=== PATIENT | male | born 1995 | race African-American/Black ===

== ENCOUNTER 2024-04-23 22:29 | Inpatient (IN) | payer MEDICAID, OTHER, SELFPAY ==
[~2024-04-23] VITALS: Ht 185.4 cm; Wt 120.0 kg
[2024-04-23 23:54] LABS: HEMATOCRIT 40.6 % (42.0-52.0); HEMOGLOBIN 13.8 g/dl (13.5-17.5); MEAN CORPUSCULAR HEMOGLOBIN 29.7 pg (27.0-33.0); MEAN CORPUSCULAR VOLUME 87.5 fl (80.0-96.0); PLATELET COUNT, AUTOMATED 257 10^3/uL (150-450); RED BLOOD COUNT 4.64 10^6/uL (4.30-6.10); WHITE BLOOD COUNT 8.1 10^3/uL (4.0-10.0)
[2024-04-24 00:15] LABS: AMPHETAMINES LEVEL URINE NEGATIVE (NEGATIVE); BARBITURATES URINE NEGATIVE (NEGATIVE); BENZODIAZEPINES URINE NEGATIVE (NEGATIVE); COCAINE METABOLITE URINE NEGATIVE (NEGATIVE); METHADONE URINE NEGATIVE (NEGATIVE); OPIATES URINE NEGATIVE (NEGATIVE); PHENCYCLIDINE URINE NEGATIVE (NEGATIVE)
[2024-04-24 00:17] LABS: ETHYL ALCOHOL (ETHANOL) < 0.003 % (0.000-0.010)
[2024-04-24 00:19] LABS: ALBUMIN 3.5 G/DL (3.2-5.2); ALKALINE PHOSPHATASE 69 U/L (40-129); ALT/SGPT 20 U/L (7.0-40); AST/SGOT 17 U/L (<34); BILIRUBIN,DIRECT 0.1 MG/DL (<0.4); BILIRUBIN,TOTAL 0.3 MG/DL (0.3-1.2); BLOOD UREA NITROGEN 16 MG/DL (9-23); CALCIUM LEVEL 8.9 MG/DL (8.5-10.1); CARBON DIOXIDE LEVEL 26 MMOL/L (20-31); CHLORIDE LEVEL 108 MMOL/L (98-107); CREATININE FOR GFR 0.87 MG/DL (0.70-1.30); GLOMERULAR FILTRATION RATE > 60.0 (>60); GLUCOSE, FASTING 92 MG/DL (60-100); POTASSIUM SERUM 3.5 MMOL/L (3.5-5.1); SALICYLATE LEVEL < 3.0 MG/DL (<30); SODIUM LEVEL 139 MMOL/L (136-145); TOTAL PROTEIN 6.9 G/DL (5.7-8.2)
[2024-04-24 00:21] LABS: CANNABINOIDS URINE POSITIVE (NEGATIVE); THYROID STIMULATING HORMONE 0.998 uIU/ML (0.55-4.78)
[2024-04-24] MEDS ORDERED: IBUPROFEN 400MG TAB PO PRN (00:35)
[2024-04-24] MEDS ORDERED: traZODone 50 MG TAB PO PRN (00:35)
[2024-04-24] MEDS ORDERED: diphenhydrAMINE 25MG CAP PO PRN (00:35)
[2024-04-24] MEDS ORDERED: MAALOX 30 ML SUSP *UDC PO PRN (00:35)
[2024-04-24] MEDS ORDERED: MOM 30ML SUSPENSION UDC PO PRN (00:35)
[2024-04-24] MEDS ORDERED: ACETAMINOPHEN 325 MG TAB PO PRN (00:35)
[2024-04-24] MEDS ORDERED: HOME MED LIST COMPLETE! XX SCH (00:50)
[2024-04-24 02:09] VITALS: BP 117/70; TEMP 97.3; O2SAT 98
[2024-04-24 06:30] VITALS: BP 129/75; TEMP 97.6; O2SAT 99
[2024-04-24] MEDS: buPROPion **XL** TABLET 150MG (WELLBUTRIN XL) PO SCH (09:28)
[2024-04-24 15:10] VITALS: BP 131/74; TEMP 98; O2SAT 100
[2024-04-25 06:45] VITALS: BP 122/59; TEMP 97.7; O2SAT 98
[2024-04-25 06:50] LABS: CHOLESTEROL RISK RATIO 3.1 (<5); HDL CHOLESTEROL 38.6 MG/DL (>40); LDL CHOLESTEROL 57.2 MG/DL (<100); NON-HDL-C 81.4 MG/DL
[2024-04-25 15:41] VITALS: BP 132/77; TEMP 97.7; O2SAT 99
[2024-04-26 06:22] VITALS: BP 150/79; TEMP 97.4; O2SAT 100
[2024-04-26] MEDS: NICOTINE 21MG/24HR 1 EA TRANSDERMAL TD SCH (08:06)
[2024-04-26 14:43] VITALS: BP 129/80; TEMP 97.5; O2SAT 100
[2024-04-27 06:25] VITALS: BP 141/92; TEMP 97; O2SAT 100
[2024-04-27] MEDS ORDERED: BUPR150T12 PO (07:53)
[2024-04-27] MEDS ORDERED: ABIL1TAB11 PO (07:53)
== END 2024-04-27 11:34 | disposition home or self-care (01) | DRG 753 ==
LOC: M ED 22:29 → M ED INP 04-24 00:33 → M PSY 04-24 02:07
PROVIDERS: ADMIT Psychiatry & Neurology Psychiatry; ATTEND Psychiatry & Neurology Psychiatry
DX: F31.30 Bipolar disorder, current episode depressed, mild or moderate severity, unspecified (principal); R45.851 Suicidal ideations; Z59.00 Homelessness unspecified; F41.9 Anxiety disorder, unspecified; F12.90 Cannabis use, unspecified, uncomplicated; F17.290 Nicotine dependence, other tobacco product, uncomplicated; Z81.8 Family history of other mental and behavioral disorders; J45.909 Unspecified asthma, uncomplicated; Z91.52 Personal history of nonsuicidal self-harm

== ENCOUNTER 2024-08-21 00:15 | Inpatient (IN) | payer OTHER ==
[~2024-08-21] VITALS: Ht 185.4 cm; Wt 125.2 kg
[~2024-08-21 00:15] MED LIST: ABIL1TAB11 PO; BUPR150T12 PO
[2024-08-21 01:07] LABS: HEMATOCRIT 43.6 % (42.0-52.0); HEMOGLOBIN 14.7 g/dl (13.5-17.5); MEAN CORPUSCULAR HEMOGLOBIN 28.8 pg (27.0-33.0); MEAN CORPUSCULAR HGB CONC 33.7 g/dl (32.0-36.5); MEAN CORPUSCULAR VOLUME 85.3 fl (80.0-96.0); PLATELET COUNT, AUTOMATED 270 10^3/uL (150-450); RED BLOOD COUNT 5.11 10^6/uL (4.30-6.10); WHITE BLOOD COUNT 10.1 10^3/uL (4.0-10.0)
[2024-08-21 01:18] LABS: ETHYL ALCOHOL (ETHANOL) < 0.003 % (0.000-0.010)
[2024-08-21 01:20] LABS: ALBUMIN 3.8 G/DL (3.2-5.2); ALKALINE PHOSPHATASE 70 U/L (40-129); ALT/SGPT 19 U/L (7.0-40); AST/SGOT 27 U/L (<34); BILIRUBIN,DIRECT 0.1 MG/DL (<0.4); BILIRUBIN,TOTAL 0.4 MG/DL (0.3-1.2); BLOOD UREA NITROGEN 19 MG/DL (9-23); CALCIUM LEVEL 8.8 MG/DL (8.5-10.1); CARBON DIOXIDE LEVEL 26 MMOL/L (20-31); CHLORIDE LEVEL 105 MMOL/L (98-107); CREATININE FOR GFR 0.95 MG/DL (0.70-1.30); GLOMERULAR FILTRATION RATE > 60.0 (>60); GLUCOSE, FASTING 94 MG/DL (60-100); POTASSIUM SERUM 3.6 MMOL/L (3.5-5.1); SALICYLATE LEVEL < 3.0 MG/DL (<30); SODIUM LEVEL 140 MMOL/L (136-145); TOTAL PROTEIN 7.1 G/DL (5.7-8.2)
[2024-08-21 01:22] LABS: THYROID STIMULATING HORMONE 1.032 uIU/ML (0.55-4.78)
[2024-08-21] MEDS ORDERED: ALBU8.5H INH (02:27)
[2024-08-21] MEDS ORDERED: HOME MED LIST COMPLETE! XX SCH (02:30)
[2024-08-21 03:38] LABS: AMPHETAMINES LEVEL URINE NEGATIVE (NEGATIVE); BARBITURATES URINE NEGATIVE (NEGATIVE); BENZODIAZEPINES URINE NEGATIVE (NEGATIVE); COCAINE METABOLITE URINE NEGATIVE (NEGATIVE); METHADONE URINE NEGATIVE (NEGATIVE); OPIATES URINE NEGATIVE (NEGATIVE); PHENCYCLIDINE URINE NEGATIVE (NEGATIVE)
[2024-08-21 03:41] LABS: CANNABINOIDS URINE POSITIVE (NEGATIVE)
[2024-08-21] MEDS ORDERED: IBUPROFEN 400MG TAB PO SCH (14:00)
[2024-08-21] MEDS ORDERED: OLANZapine ORAL DISINTEGRATING TAB 5MG PO PRN (16:05)
[2024-08-21] MEDS ORDERED: traZODone 50 MG TAB PO PRN (16:05)
[2024-08-21] MEDS ORDERED: MOM 30ML SUSPENSION UDC PO PRN (16:05)
[2024-08-21] MEDS ORDERED: ACETAMINOPHEN 325 MG TAB PO PRN (16:05)
[2024-08-21] MEDS ORDERED: IBUPROFEN 400MG TAB PO PRN (16:25)
[2024-08-21 17:39] VITALS: BP 121/66; TEMP 98.1; O2SAT 98
[2024-08-22 06:22] VITALS: BP 107/53; TEMP 96.9; O2SAT 97
[2024-08-22] MEDS: buPROPion **XL** TABLET 150MG (WELLBUTRIN XL) PO SCH (09:54)
[2024-08-22] MEDS ORDERED: ALBUTEROL 90 MCG/ACT 8GM HFA INHALER INH PRN (09:55)
[2024-08-22] MEDS: NICOTINE 21MG/24HR 1 EA TRANSDERMAL TD SCH (10:11)
[2024-08-22 15:00] VITALS: BP 132/71; TEMP 97.8; O2SAT 100
[2024-08-22] MEDS: CLOTRIMAZOLE 1% TOPICAL CREAM 30GM TOP SCH (16:26)
[2024-08-23 06:24] VITALS: BP 110/60; TEMP 97.6; O2SAT 98
[2024-08-23] MEDS ORDERED: CLOTR1CR TOP (09:20)
== END 2024-08-23 10:48 | disposition home or self-care (01) | DRG 753 ==
LOC: M ED 00:15 → M ED INP 15:46 → M PSY 17:08
PROVIDERS: ADMIT Psychiatry & Neurology Psychiatry; ATTEND Psychiatry & Neurology Psychiatry
DX: F31.30 Bipolar disorder, current episode depressed, mild or moderate severity, unspecified (principal); R45.851 Suicidal ideations; F41.9 Anxiety disorder, unspecified; F12.90 Cannabis use, unspecified, uncomplicated; F60.3 Borderline personality disorder; F17.200 Nicotine dependence, unspecified, uncomplicated; J45.20 Mild intermittent asthma, uncomplicated; D72.829 Elevated white blood cell count, unspecified